=== PATIENT | female | born 1950 | race African-American/Black ===

== ENCOUNTER → 2022-10-25 12:45 | Outpatient (CLI) | payer MEDICARE, SELFPAY ==
--- NOTE | ~2022-10-25 | DEXA_ITS ---
Bone Density Report Name: BARBARA MATA Age: 72 Sex: Female Ethnicity: Black Date of : 1950 Indication: postmenopausal; screening for osteoporosis; height loss; hysterectomy; Referring Provider: Ragini Grossman Study: Bone densitometry was performed. Exam Date: October 25, 2022 Accession number: [id number] Bone Density: Region BMD T-score Z-score Classification AP Spine (L1-L4) 1.439 3.6 5.0 Normal Femoral Neck (Left) 0.749 -0.9 0.0 Normal Total Hip (Left) 0.989 0.4 0.9 Normal Femoral Neck (Right) 0.763 -0.8 0.1 Normal Total Hip (Right) 0.932 -0.1 0.5 Normal Total Hip Mean 0.961 0.2 0.7 Normal World Health Organization criteria for BMD impression classify patients as: Normal (T-score at or above -1.0), Osteopenia (T-score between -1.0 and -2.5), or Osteoporosis (T-score at or below -2.5). 10-year Fracture Risk: FRAX not reported because: All T-scores for Spine Total, Hip Total, Femoral Neck at or above -1.0 Clinical Information Provided by Patient: Has used the following medications: Vitamin D Has the following medical conditions: Hysterectomy Patient maximum height was 65 Menopause Age: 51 No regular weight bearing exercise Does not regularly consume dairy products Drinks caffeinated beverages Onset of menses at age 14 Number of children 3 Impression: The patient has normal bone mass. Discussion: BONE DENSITY IS ABOVE THE MINIMUM DESIRABLE LEVEL AT ALL SKELETAL SITES TESTED. This patient?s bone mineral density is above the minimum desirable level (T-score -1.0 or better) at all sites measured. The patient should follow a healthful lifestyle (good nutrition with adequate calcium and vitamin D, and appropriate weight-bearing exercise). Follow-Up: Consider repeating this study in 5 years or sooner if there is some new clinical indication. Reported by: CAMERON on 10/25/2022 1:14:00 PM. Reviewed, dictated and finalized at location AJackie OSWALD
== END ==
PROVIDERS: PCP Family Medicine; Visit Provider Family Medicine
DX: Z78.0 Asymptomatic menopausal state (principal)
CPT/HCPCS: 77080

== ENCOUNTER 2023-10-30 01:02 | Day surgery (SDC) | payer MEDICARE, SELFPAY ==
[2023-09-04 14:44] VITALS: BMI 46.7
--- NOTE | 2023-09-11 10:26 | PC.NURSE ---
Spoke with __patient__ regarding medication _Eliquis. Pt. verbalizes understanding that the last dose of _Eliquis_ is to be taken on 09/17/2023__ and the Endoscopist will instruct them when to restart after the procedure.
--- NOTE | 2023-09-18 11:41 | SUR.PREOP ---
Patient called regarding upcoming procedure. Reviewed preop instructions, appointment times, and procedure prep.
--- NOTE | 2023-09-18 11:45 | SUR.PREOP ---
Call pt as a reminder of her appointment. Pt stated she needed to reschedule. No reason given. Patient rescheduled to October 29 at 10am.
[2023-10-17 14:08] VITALS: BMI 46.7
--- NOTE | 2023-10-28 10:12 | SUR.PREOP ---
Patient called regarding upcoming procedure. Reviewed preop instructions, appointment times, procedure prep.
[2023-10-30 09:01] VITALS: BP 146/94; PULSE 85; RESP 18; TEMP 36.1; O2SAT 100
[2023-10-30] MEDS: LACTATED RINGERS 1,000 ML 150 ML IV CONT (09:14)
--- NOTE | 2023-10-30 09:58 | PM.HPGS ---
History of Present Illness History of Present Illness Consent: Risks, benefits, and alternatives have been discussed and questions answered. Patient agrees to proceed with procedure. Chief complaint: neoplasm screening Narrative: Rimma Mckeon is a 73 year old female here for screening colonoscopy, last one about 6 years ago Review of Systems Review of Systems: All systems reviewed & are unremarkable except as noted in HPI and below PMFSH Past Medical History Medical History Arthritis Atrial fibrillation Electrical isolation of left atrial appendage after cardiac ablation procedure for atrial fibrillation Heart disease HTN (hypertension) Surgical History Surgical History H/O left knee surgery History of partial hysterectomy History of right knee surgery Family History Family History Mother Diabetes mellitus Heart disease Cerebrovascular accident Sibling Hypertension Social History Social History Smoking status: Never smoker Alcohol intake: current Drinks per week: 5 Alcohol use details: daily/ vodka and cranberry juice Substance use: never Substance use type: does not use Lack of Transportation: No Lack of Food: Never True Current Housing: I Have Housing Concerned About Future Housing: No Difficulty Paying Gas/Electric Bills: No Difficulty Paying for Meds: No Currently Unemployed: No Education: Bachelor's Degree Difficulty w/ Childcare or Family Care: No Living arrangements: alone Occupation/Education: retired Gender identity (if verbalized by the patient): Female Spiritual care concerns: No Agree to blood products: Yes Meds Home Medications and Allergies Home Medications Medication Instructions Recorded Confirmed Type amiodarone 200 mg tablet 200 mg PO 2XW 06/08/22 10/17/23 History apixaban 5 mg tablet (Eliquis) 5 mg PO BID 06/08/22 10/30/23 History diltiazem HCl 240 mg capsule,24 240 mg PO DAILY 06/08/22 10/17/23 History hr,extended release furosemide 40 mg tablet 40 mg PO QAM 06/08/22 10/17/23 History tizanidine 4 mg capsule 4 mg PO BID PRN muscle spasticity 01/21/23 10/17/23 Rx #90 caps albuterol sulfate 90 mcg/actuation 2 inh inhalation Q4H PRN shortness 06/14/23 10/17/23 Rx aerosol inhaler of breath or wheezing #8.5 grams sacubitril 24 mg-valsartan 26 mg 1 tablet PO BID #180 tabs 07/22/23 10/17/23 Rx tablet (Entresto) tramadol 50 mg tablet 50 mg PO Q6H PRN pain #30 tabs 09/30/23 10/17/23 Rx potassium chloride 20 mEq See Rx Instructions .Route 10/17/23 10/17/23 Rx tablet,extended .COMPLEX #90 tabs release(part/cryst) (Klor-Con M) Allergies Allergy/AdvReac Type Severity Reaction Status Date / Time No Known Allergies Allergy Verified 10/30/23 09:00 Vital Signs Vital Signs - 24 hr 10/30/23 09:01 Temperature 97 F L Pulse Rate 85 Respiratory Rate 18 Blood Pressure 146/94 H Pulse Oximetry 100 Oxygen Delivery Room Air Exam Const: General: comfortable and no acute distress HENMT: Face/Nose/Sinus: Normal nares present Eyes: General: appearance normal, both eyes and all related structures Neck: Neck: no JVD Resp: Auscultation: clear to auscultation bilaterally Cardio: Rate: regular rate Rhythm: regular rhythm GI: Inspection: non-distended GI Palp: Yes Soft to palpation Skin: General skin exam: normal color Neuro: General: gait normal Speech: normal speech Extrem: General: normal to inspection Psych: Mental Status: mental status grossly normal Assessment and Plan Assessment and plan (1) Screening for colon cancer: Code(s): Z12.11 - Encounter for screening for malignant neoplasm of colon Status: Acute Assessment and Plan: colonoscopy
--- NOTE | 2023-10-30 10:06 | WPDANESEPPF ---
Anes - Initial Pre Proc Eval Procedure: Operation Date: 10/30/23 10:00 Proposed Procedures p Screening Colonoscopy - Flakito Lamas MD Date/Time: 10/30/23 10:06 Surgeon: Flakiot Lamas MD Pre Op Diagnosis: neoplasm screening Patient Data Age: 73 Gender: F Height: 1.65 m Weight: 133 kg Last Vital Signs Temp 97 F L 10/30/23 09:01 Pulse 85 10/30/23 09:01 Resp 18 10/30/23 09:01 BP 146/94 H 10/30/23 09:01 Pulse Ox 100 10/30/23 09:01 O2 Del Method Room Air 10/30/23 09:01 Allergies Allergy/AdvReac Type Severity Reaction Status Date / Time No Known Allergies Allergy Verified 10/30/23 09:00 Home Medications Medication Instructions Recorded Confirmed Type amiodarone 200 mg tablet 200 mg PO 2XW 06/08/22 10/17/23 History apixaban 5 mg tablet (Eliquis) 5 mg PO BID 06/08/22 10/30/23 History diltiazem HCl 240 mg capsule,24 240 mg PO DAILY 06/08/22 10/17/23 History hr,extended release furosemide 40 mg tablet 40 mg PO QAM 06/08/22 10/17/23 History tizanidine 4 mg capsule 4 mg PO BID PRN muscle spasticity 01/21/23 10/17/23 Rx #90 caps albuterol sulfate 90 mcg/actuation 2 inh inhalation Q4H PRN shortness 06/14/23 10/17/23 Rx aerosol inhaler of breath or wheezing #8.5 grams sacubitril 24 mg-valsartan 26 mg 1 tablet PO BID #180 tabs 07/22/23 10/17/23 Rx tablet (Entresto) tramadol 50 mg tablet 50 mg PO Q6H PRN pain #30 tabs 09/30/23 10/17/23 Rx potassium chloride 20 mEq See Rx Instructions .Route 10/17/23 10/17/23 Rx tablet,extended .COMPLEX #90 tabs release(part/cryst) (Klor-Con M) Patient hx anesthesia problems: none Family hx anesthesia problems: none Results Review: All pre-operative results and documents have been reviewed as part of the pre-operative evaluation. [facility] Past Medical History Medical History Arthritis Atrial fibrillation Electrical isolation of left atrial appendage after cardiac ablation procedure for atrial fibrillation Heart disease HTN (hypertension) Surgical History Surgical History H/O left knee surgery History of partial hysterectomy History of right knee surgery Family History Family History Mother Diabetes mellitus Heart disease Cerebrovascular accident Sibling Hypertension Social History Social History Smoking status: Never smoker Alcohol intake: current Drinks per week: 5 Alcohol use details: daily/ vodka and cranberry juice Substance use: never Substance use type: does not use Lack of Transportation: No Lack of Food: Never True Current Housing: I Have Housing Concerned About Future Housing: No Difficulty Paying Gas/Electric Bills: No Difficulty Paying for Meds: No Currently Unemployed: No Education: Bachelor's Degree Difficulty w/ Childcare or Family Care: No Living arrangements: alone Occupation/Education: retired Gender identity (if verbalized by the patient): Female Spiritual care concerns: No Agree to blood products: Yes Anes - Eval Final PreProcedure Day of Procedure 10/30/23 10:06 Patient weight: morbidly obese Heart: regular rate and rhythm Lungs: clear to auscultation Airway: Mallampati scale class III Neurological: alert and oriented Last oral intake: >/= 8 hours ASA classification: III Emergent: no Anesthetic plan: proceed Anesthesia type and monitoring: general GIVS and standard monitoring Results Review: All pre-operative results and documents have been reviewed as part of the pre-operative evaluation. Informed Consent: The patient's anesthetic plan and its attendant risks and benefits were discussed with the patient/family/POA. Questions were solicited and answers provided to the satisfaction of the patient/family
[2023-10-30 10:27] VITALS: BP 93/56; PULSE 83; RESP 17; O2SAT 99
[2023-10-30 10:37] VITALS: BP 110/72; PULSE 80; RESP 20; O2SAT 98
[2023-10-30 10:47] VITALS: BP 117/63; PULSE 74; RESP 20; O2SAT 97
== END 2023-10-30 10:58 | disposition home or self-care (01) ==
PROVIDERS: PCP Family Medicine; Visit Provider Internal Medicine Gastroenterology
PROC: 0DJD8ZZ Inspection of Lower Intestinal Tract, Via Natural or Artificial Opening Endoscopic (ICD-10-PCS; CPT 45378; principal; 2023-10-30 10:00)
DX: Z12.11 Encounter for screening for malignant neoplasm of colon (principal); D12.4 Benign neoplasm of descending colon; K63.5 Polyp of colon; K57.30 Diverticulosis of large intestine without perforation or abscess without bleeding; K64.8 Other hemorrhoids; I48.91 Unspecified atrial fibrillation; I11.9 Hypertensive heart disease without heart failure; E66.01 Morbid (severe) obesity due to excess calories; Z68.42 Body mass index [BMI] 45.0-49.9, adult; Z79.01 Long term (current) use of anticoagulants; Z79.51 Long term (current) use of inhaled steroids
CPT/HCPCS: 45385; 88305; J2371; J2704; J7120

== ENCOUNTER 2023-11-05 14:59 | Outpatient (CLI) | payer MEDICARE, SELFPAY ==
--- NOTE | ~2023-11-05 | XR_ITS ---
XR knee LT 3V 11/05/2023 15:11 Indication: Left knee replacement. Knee pain. Procedure: 3 views left knee Comparison: No prior studies for comparison. Findings: There is widening of the cement bone M interface anteriorly at the tibial aspect of the pro sthesis. There is also lucency surrounding the post of the tibial aspect of the prosthesis posteriorl y. There is dorsal tilt of the prosthesis. Femoral component appears to be intact. Small joint effusi on. Impression: 1: Abnormal lucency surrounding the tibial aspect of the left knee prosthesis anteriorly and posterio rly, consistent with loosening. Recommend orthopedic referral. Reviewed, dictated and finalized at location B. Impression: 1: Abnormal lucency surrounding the tibial aspect of the left knee prosthesis a nteriorly and posteriorly, consistent with loosening. Recommend orthopedic refe rral.
== END 2023-11-05 15:00 ==
PROVIDERS: PCP Family Medicine; Visit Provider Nurse Practitioner
DX: Z96.652 Presence of left artificial knee joint (principal)
CPT/HCPCS: 73562

== ENCOUNTER 2024-08-10 07:54 | Outpatient (CLI) | payer MEDICARE, SELFPAY ==
--- OUTSIDE RECORDS SUMMARY | 2024-08-17 11:19 | XMS_ITS | Encounter Summary ---
Author Organization [facility] Address [address] [place] [address] Care Team Providers Care Er Tech Name Role Phone Unavailable Primary Care Provider Unavailabl e Encounter Details Date Type Department Care Team (Late st Contact Info) Description 06/27/2018 Orders Only [facility] - Orthopedics [address] [place] [address] Cyndy Shaver PA-C [address] [place] [address] Pain in both knees, unspecified chronicity Social History Tobacco Use Types Packs/Day Years Used Date Smoking Tobacco: Never Assessed Sex and Gender Information Value Date Recorded Sex Assigned at Not on file Gender Identity Not on file Sexual Orientation Not on file documented as of this encounter Plan of Treatment Not on file documented as of this encounter Results * XR KNEE LEFT 4VW OR MORE (06/30/2018 9:18 AM SEO ASSOCIATE) Anatomical Region Laterality Modality Lower Extremity Radiographic Richelle ging 06/30/2018 10:2 2 AM SEO ASSOCIATE Impressions 06/30/2018 10:23 AM SEO ASSOCIATE IMPRESSION: Severe osteoarthritis with genu varum. This report was electronically signed by BRUCE BLANCO MD ??on 06/30/2018 10:23 AM . Narrative 06/30/2018 10:23 AM SEO ASSOCIATE Exam: ??XR KNEE LEFT 4VW OR MORE History: ??knee pain Comparison: None. Findings: No acute fracture or dislocation is present. Severe osteoarthritis is demonstrated, greatest in the medial compartment where there is [id number] contact and flattening of the medial femoral condyle contour, subchondral cysts, sclerosis, large osteophytes. There is genu varum and lateral tibial subluxation. No effusion is noted. Procedure Note Bruce Blanco MD - 06/30/2018 Exam: XR KNEE LEFT 4VW OR MORE History: knee pain Comparison: None. Findings: No acute fracture or dislocation is present. Severe osteoarthritis is demonstrated, greatest in the medial compartment where there is [id number] contact and flattening of the medial femoral condylecontour, subchondral cysts, sclerosis, large osteophytes. There is genu varum and lateral tibial subluxation. No effusion is noted. IMPRESSION: Severe osteoarthritis with genu varum. This report was electronically signed by BRUCE BLANCO MD on 06/30/2018 10:23 AM . Cyndy Shaver PA-C DIAGNOSTIC IMAG ING ORDERABLES * XR KNEE RIGHT 4VW OR MORE (06/30/2018 9:18 AM SEO ASSOCIATE) Anatomical Region Laterality Modality Lower Extremity Radiographic Richelle ging 06/30/2018 10:2 1 AM SEO ASSOCIATE Impressions 06/30/2018 10:22 AM SEO ASSOCIATE IMPRESSION: Severe osteoarthritis and genu varum. This report was electronically signed by BRUCE BLANCO MD ??on 06/30/2018 10:22 AM . Narrative 06/30/2018 10:22 AM SEO ASSOCIATE Exam: ??XR KNEE RIGHT 4VW OR MORE History: ??knee pain Comparison: None. Findings: No fracture or dislocation is present. There is osteoarthritis, severe in the medial compartment with [id number] contact. Large osteophytes are noted. There is genu varum and lateral tibial subluxation. No effusion is seen. Procedure Note Bruce Blanco MD - 06/30/2018 Exam: XR KNEE RIGHT 4VW OR MORE History: knee pain Comparison: None. Findings: No fracture or dislocation is present. There is osteoarthritis, severein the medial compartment with [id number] contact. Large osteophytes are noted. There is genu varum and lateral tibial subluxation. No effusionis seen. IMPRESSION: Severe osteoarthritis and genu varum. This report was electronically signed by BRUCE BLANCO MD on 06/30/2018 10:22 AM . Cyndy Shaver PA-C DIAGNOSTIC IMAG ING ORDERABLES documented in this encounter Visit Diagnoses Diagnosis Pain in both knees, unspecified chronicity- Primary documented in this encounter
--- OUTSIDE RECORDS SUMMARY | 2024-08-17 11:19 | XMS_ITS | Encounter Summary ---
Author Organization [facility] Address [address] [place] [address] Care Team Providers Care Pharmacy Scheduler Name Role Phone Unavailable Primary Care Provider Unavailabl e Reason for Visit * Reason Comments Pain Knee Bilateral knee injec tions Encounter Details Date Type Department Care Team (Latest Contact Info) Description 11/20/2018 8:30 AM CDT Office Visit [facility] - Orthopedics [address], [facility] [place] [id number] Cyndy Shaver PA-C [address] [place] [address] Bilateral primary osteoarthritis of knee (Primary Dx) Social History Tobacco Use Types Packs/Day Years Used Date Smoking Tobacco: Never Smokeless Tobacco: Never Sex and Gender Information Value Date Recorded Sex Assigned at Not on file Gender Identity Not on file Sexual Orientation Not on file documented as of this encounter Last Filed Vital Signs Vital Sign Reading Time Taken Comments Blood Pressure - - Pulse - - Temperature - - Respiratory Rate - - Oxygen Saturation - - Inhaled Oxygen Concentration - - Weight 165.6 kg (365 lb) 11/20/2018 8:46 AM CDT Height 165.1 cm (5' 5 ) 11/20/2018 8:46 AM CDT Body Mass Index 60.74 11/20/2018 8:46 AM CDT documented in this encounter Patient Instructions * Patient Instructions* Cyndy Shaver PA-C - 11/20/2018 8:55 AM CDT [facility] Department of Orthopaedic Surgery Orthopaedic Clinic Discharge Form Rimma Mckeon 11/20/2018 Thank you for coming in to see us today for your diagnosis of: Bilateral primary osteoarthritis of knee - Plan: PROCDOC LARGE JOINT INJECTION, PROCDOC LARGE JOINTINJECTION Activity Restrictions: as tolerated Medications Prescribed: none Special Studies/Labs to be completed: none We recommend that you try the following for your injury: physical therapy exercises, anti-inflammatory medications, corticosteroid injection given in clinictoday, tylenol, activity modification, weight loss and icing 20 minutes at a time 3 to 5 times daily Recommend 2000 units Vitamin D daily for bone health May try 1500 to 2000 mg Glucosamine/chondriotin/MSM daily for joint pain Medications over the counter: - Acetaminophen (Tylenol) 500mg 1-2 tablets every 6 hours as needed for pain, not exceeding daily total of 3000mg. Please note that narcotic medications can consist of same ingredient. - Ibuprofen (Advil) 200mg 1-3 tablets every 8 hours as needed for pain, not exceeding daily total of 2400mg OR Naproxen (Aleve) 220mg 1-2 tablets every 12 hours as needed for pain. Take with food or milk to prevent stomach upset. Do not take any other NSAIDs while taking this medication. Follow up: as needed. Injections may be repeated in 3 months Rimma Mckeon had a clinic appointment on 11/20/2018. Please contact our office to make an appointment if your symptoms are not improving, or if something about your condition significantly changes. [facility]opa[facility] office contact information: Critical access hospital ; select option 1 to make, change or cancel an appointment OR leave voicemail with Jessica Crum RN at with any questions/concerns. [address] [place] [address] [facility] [address] [place] [address], [address] [address] Contact [facility] to explore weight loss options. Website: [email or web address] offers both surgical and non-surgical weight-loss options to treat obesity. Whether you need to make long-term lifestyle changes or small habit adjustments, our team of specially- trainedphysicians and clinicians will support you on your journey to wellness. OR Contact [facility] Website: [email or web address] documented in this encounter Progress Notes * Cyndy Shaver PA-C - 11/20/2018 8:53 AM CDT [facility] [address] [facility] [address] Dept: [phone] Dept Today we had the pleasure of seeing Rimma Mckeon in our [facility]opa[facility] Surgery Clinic for Chief Complaint Patient presents with ??? Pain Knee Bilateral knee injections Rimma Mckeon is a 68 year old female who has bilateral knee pain due to OA. She was last seen 5months ago and underwent bilateral knee injections. She presents today for repeat injections. Pain is located to the right worse than left medial knee. The patient first noted symptoms 10 years ago. It was related to NKI. Associated with pain are symptoms of swelling and instability. Symptoms are exacerbated by weight bearing activity. Factors which relieve the pain include rest. she is taking meloxicam for pain. she ambulates with cane. she has not done physical therapy. she denies changes in health since last appt No past medical history on file. No past surgical history on file. No family history on file. History Smoking Status ??? Never Smoker Smokeless Tobacco ??? Never Used Focused ROS includes: Enodcrine Diabetes Mellitus: Not Applicable Thyroid disorders: no Pulmonary COPD: no Asthma: no Other: negative Cardiac History of CHF: no History of IN: no Previous PCI / PTCA: no Previous Cardiac Surgery: no Hypertension requires meds: yes Vascular Known peripheral vascular disease: no Central Nervous System History of TIA's: no CVA: No History of Cancer of any kind: no Bleeding disorders: no Other significant health issues are: negative Physical Examination Vitals: 11/20/18 0846 Weight: (!) 165.6 kg (365 lb) Height: 1.651 m (5' 5 ) Estimated body mass index is 60.74 kg/(m^2) as calculated from the following: Height as of this encounter: 1.651 m (5' 5 ). Weight as of this encounter: 165.6 kg (365 lb). she is awake, alert, oriented and they are pleasant to speak with. There is no pain with rotation of the right or left hip. There is a negative straight leg raise bilaterally. Gait is limping. Bilateral lower extremity: There is not an effusion. Varus knees. There is tenderness of the medialjoint line. Addy is negative. There is grade 1 varus laxity . Thereis grade 1 valgus laxity. There is grade 1 posterior sag. McMurrays test is n/a. ROM is from 0 degrees of extension to 100 degreesof flexion. The patient does have significant pain with these ranges of motion. The extensor mechanism is intact. There is not a palpable gap in the patellar and quadriceps tendons. The patellar tracks well. Patellar apprehension test is negative. Quadriceps strength is 5/5. There is not quadricepsatrophy present. intactEHL/FHL/GS/AT, Sensation: intact to light touch distally in L4, L5, S1 distributions, Brisk capillary refill (<2 sec). Erythema: none. Warmth: none. Crepitus: none. Radiographs were reviewed by me in office: plain films bilateral knee (06/29): tricompartmental degenerative changes, severe medially. Impression: Bilateral knee OA Plan: The patient was counseled as to her diagnosis and demonstrated understanding. 1. Restrictions: none 2. Bilateral knee corticosteroid injection was given in office. Recommend icing for 20 minutes 3-5 times a day for the first 48 hours and then as needed for pain. 3. discussed physical therapy, she declines. Discussed importance of developing a home exercise program 4. Medication prescribed: none. Continue meloxicam prn pain 5. Patient was counseled as to the following conservative interventions: - Recommend 2000 units Vitamin D daily for bone health - May try 1500 to 2000 mg Glucosamine/chondriotin/MSM daily for joint pain. - The patient was counseled as to the benefits of weight loss. Information provided for [facility] Weight Loss Management services - she was informed about the use of ambulatory assistive devices. 6. F/U as needed. Injections may be repeated in 3 months. Prior to joint replacement surgery, patient understands BMI must be below 40.0 Cyndy Shaver PA-C documented in this encounter Procedure Notes * Cyndy Shaver PA-C - 11/20/2018 4:34 PM CDTAssociated Order(s): PROCDOC LARGE JOINT INJECTION Procedure(s): VT DRAIN/INJECT LARGE JOINT/BURSA Pre-Procedure Diagnose(s): Bilateral primary osteoarthritis of knee Orthopaedic Surgery Procedure Note Diagnosis: Left knee pain Procedure: Injection of Corticosteroid into the Left knee. Indications: Rimma Mckeon is a 68 year old female who has Left knee pain and arthritis. Procedure Details: Ms. Mckeon was informed of her condition, and the potential benefits of injection of steroid. The patient was counseled as to the risks of the procedure. She was understanding and agreeable. The patient was placed into the supine position. The area was prepped with beta-dine. Utilizing the supralateral patellar portal, the skin, subcutaneous, and pericapsular tissues were injected with 3 cc 1% lidocaine without epinephrine using a 21 Ga needle. The patient's Left knee was then entered. Confirmation of location inside the joint was evidenced by aspiration of straw colored synovial fluid. 2 cc of Kenalog and 3 cc 1% lidocaine without epinephrine was injected into the joint. The needle was removed and the needle site dressed with a semi-sterile bandage. The patient tolerated the procedure well. Remainder of plan per note. Cyndy Shaver PA-C 11/20/2018 4:34 PM * Cyndy Shaver PA-C - 11/20/2018 4:34 PM CDTAssociated Order(s): PROCDOC LARGE JOINT INJECTION Procedure(s): VT DRAIN/INJECT LARGE JOINT/BURSA Pre-Procedure Diagnose(s): Bilateral primary osteoarthritis of knee Orthopaedic Surgery Procedure Note Diagnosis: Right knee pain Procedure: Injection of Corticosteroid into the Right knee. Indications: Rimma Mckeon is a 68 year old female who has Right knee pain and arthritis. Procedure Details: Ms. Mckeon was informed of her condition, and the potential benefits of injection of steroid. The patient was counseled as to the risks of the procedure. She was understanding and agreeable. The patient was placed into the supine position. The area was prepped with beta-dine. Utilizing the supralateral patellar portal, the skin, subcutaneous, and pericapsular tissues were injected with 3 cc 1% lidocaine without epinephrine using a 21 Ga needle. The patient's Right knee was then entered. Confirmation of location inside the joint was evidenced by aspiration of straw colored synovial fluid. 2 cc of Kenalog and 3 cc 1% lidocaine without epinephrine was injected into the joint. The needle was removed and the needle site dressed with a semi-sterile bandage. The patient tolerated the procedure well. Remainder of plan per note. Cyndy Shaver PA-C 11/20/2018 4:34 PM documented in this encounter Plan of Treatment Not on file documented as of this encounter Procedures Procedure Name Priority Date/Time Associated Diagnosis Comments VT DRAIN/INJECT LARGE JOINT/BURSA Routine 11/20/2018 4:35 PM CDT Bilateral primary osteoarthritis of knee VT DRAIN/INJECT LARGE JOINT/BURSA Routine 11/20/2018 4:35 PM CDT Bilateral primary osteoarthritis of knee documented in this encounter Results * VT DRAIN/INJECT LARGE JOINT/BURSA (11/20/2018 4:35 PM CDT) Narrative Cyndy Shaver PA-C - 11/20/2018 4:35 PM CDT Cyndy Shaver PA-C ? 11/20/2018 ??4:35 PM Orthopaedic Surgery Procedure Note Diagnosis: Left knee pain Procedure: Injection of Corticosteroid into the Left knee. Indications: Rimma Mckeon is a 68 year old female who has Left knee pain and arthritis. Procedure Details: Ms. Mckeon was informed of her condition, and the potential benefits of injection of steroid. The patient was counseled as to the risks of the procedure. She was understanding and agreeable. The patient was placed into the supine position. The area was prepped with beta-dine. Utilizing the supralateral patellar portal, the skin, subcutaneous, and pericapsular tissues were injected with 3 cc 1% lidocaine without epinephrine using a 21 Ga needle. The patient's Left knee was then entered. Confirmation of location inside the joint was evidenced by aspiration of straw colored synovial fluid. 2 cc of Kenalog and 3 cc 1% lidocaine without epinephrine was injected into the joint. The needle was removed and the needle site dressed with a semi-sterile bandage. The patient tolerated the procedure well. Remainder of plan per note. Cyndy Shaver PA-C 11/20/2018 4:34 PM Cyndy Shaver PA-C PROCEDURE/MINOR SURGICAL ORDERABLES * VT DRAIN/INJECT LARGE JOINT/BURSA (11/20/2018 4:35 PM CDT) Narrative Cyndy Shaver PA-C - 11/20/2018 4:35 PM CDT Cyndy Shaver PA-C ? 11/20/2018 ??4:35 PM Orthopaedic Surgery Procedure Note Diagnosis: Right knee pain Procedure: Injection of Corticosteroid into the Right knee. Indications: Rimma Mckeon is a 68 year old female who has Right knee pain and arthritis. Procedure Details: Ms. Mckeon was informed of her condition, and the potential benefits of injection of steroid. The patient was counseled as to the risks of the procedure. She was understanding and agreeable. The patient was placed into the supine position. The area was prepped with beta-dine. Utilizing the supralateral patellar portal, the skin, subcutaneous, and pericapsular tissues were injected with 3 cc 1% lidocaine without epinephrine using a 21 Ga needle. The patient's Right knee was then entered. Confirmation of location inside the joint was evidenced by aspiration of straw colored synovial fluid. 2 cc of Kenalog and 3 cc 1% lidocaine without epinephrine was injected into the joint. The needle was removed and the needle site dressed with a semi-sterile bandage. The patient tolerated the procedure well. Remainder of plan per note. Cyndy Shaver PA-C 11/20/2018 4:34 PM Cyndy Shaver PA-C PROCEDURE/MINOR SURGICAL ORDERABLES documented in this encounter Visit Diagnoses Diagnosis Bilateral primary osteoarthritis of knee- Primary documented in this encounter Administered Medications Inactive Administered Medications - up to 3 most recent administrations Medication Order MAR Action Action Date Dose Rate Site lidocaine (XYLOCAINE MPF) 1 % injection 6 mL 6 mL, Intra-articular, ONCE, 1 dose, On Radha 11/20/18 at 0915 $ Given 11/20/2018 10:26 AM CDT 6 mL Righ t Knee lidocaine (XYLOCAINE MPF) 1 % injection 6 mL 6 mL, Intra-articular, ONCE, 1 dose, On Radha 11/20/18 at 0915 $ Given 11/20/2018 10:25 AM CDT 6 mL Left Knee triamcinolone acetonide (KENALOG-40) injection 80 mg 80 mg, Intra-articular, ONCE, 1 dose, On Radha 11/20/18 at 0915, Shake well before using. $ Given 11/20/2018 10:26 AM CDT 80 mg Righ t Knee triamcinolone acetonide (KENALOG-40) injection 80 mg 80 mg, Intra-articular, ONCE, 1 dose, On Radha 11/20/18 at 0915, Shake well before using. $ Given 11/20/2018 10:26 AM CDT 80 mg Left Knee documented in this encounter
--- OUTSIDE RECORDS SUMMARY | 2024-08-17 11:19 | XMS_ITS | Referral Summary ---
Author Organization [facility] Address [address] [place] [address] Care Team Providers Care Yarn Spinner Name Role Phone Unavailable Primary Care Provider Unavailabl e Source Comments [facility],non-owned Affiliates and Associated Physician Practices is amultiple site organization consisting of ambulatory clinics and hospital sitesin [place], [place], [place] and [place]. This disclosure is being madepursuant to the Care Everywhere program and may not contain all information available regarding this patient. Last updated 18.[facility] Allergies No known active allergies Medications * Be aware that medications may not be up to date on this document. Alwaysverify current medications with the patient. Medication Sig Dispensed Refills Start Date End Date Status furosemide (LASIX) 40 MG tablet Take 40 mg by mouth once daily Active amLODIPine (NORVASC) 10 MG tablet Take 10 mg by mouth once daily Active meloxicam (MOBIC) 15 MG tabletIndications:Bila teral primary osteoarthritis of knee Take 1 tablet by mouth once daily 30 tablet 2 06/30/2018 Active amiodarone (CORDARONE) 200 MG tablet 06/15/2019 Active ELIQUIS 5 MG tablet 06/30/2019 Activ e diclofenac sodium (VOLTAREN) 1 % gel Voltaren 1 % topical gel APPLY 2 GRAMS TO THE AFFECTED AREA(S) BY TOPICAL ROUTE 3 times daily Active dilTIAZem coated beads 24hr (CARDIZEM CD) 180 MG capsule 06/15/2019 Active Active Problems No known active problems Social History Tobacco Use Types Packs/Day Years Used Date Smoking Tobacco: Never Smokeless Tobacco: Never Alcohol Use Standard Drinks/Week Comments Yes 0 (1 standard drink = 0.6 oz pur e alcohol) AUDIT-C Answer Date Recorded Frequency of Alcohol Consumption 4 or more times a week 07/07/2019 Average Number of Drinks Not on file 019 Frequency of Binge Drinking Not on file 06/13 Sex and Gender Information Value Date Recorded Sex Assigned at Not on file Gender Identity Not on file Sexual Orientation Not on file Last Filed Vital Signs Vital Sign Reading Time Taken Comments Blood Pressure - - Pulse - - Temperature - - Respiratory Rate - - Oxygen Saturation - - Inhaled Oxygen Concentration - - Weight 158.8 kg (350 lb) 07/07/2019 10:59 AM 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 Author Mobility General No Jessica Crum RN Note: Expected end date: 08/12/2019 The goal is to maintain or improve your mobility at the optimum level for you. Interventions:
--- OUTSIDE RECORDS SUMMARY | 2024-08-17 11:19 | XMS_ITS | Continuity of Care Document ---
Author Organization [facility] Address [address] [place] [address] [address] [place] [address] Phone Care Team Providers Care Drafter Name Role Phone Aníbal Tristan Unavailable Unavailable Procedures Procedure Date Office/outpatient Visit, [facility] Advance Directives Directive Yes / No Effective Date File Name No Information Encounters Encounter Description Practice Location Reason(s) For Visit Diagnoses Date Provider Providers Copied on Encounter Office/outpat ient Visit, [facility], [address], [place], [place], [id number], [place] tel:[phone] [facility] No Information Oct-0 3-200 9 Maldonadotamyannita Aníbal. [address], [place], [address], [place]. tel:[phone] Family History Family Member Type Diagnosis Age At Onset No Information Payers Payer name Insurance type Covered republican ID Danny vazquez(s) [facility] CI [id number] Social History Type Description Quantity Date Captured Comments Sex Female Smoking Status No Information Chief Complaint And Reason For Visit No Information Reason For Referral Reason For Referral No Information History Of Present Illness Encounter Date Complaint History Of Prese nt Illness No Information Functional Status Date Functional Assessmen t No Information Instructions Date Instruction Additional Infor mation No Information Assessments Type Assessment Date No Information Patient Care Teams Name Effective Dates (start - stop) Status Members No Information
--- OUTSIDE RECORDS SUMMARY | 2024-08-17 11:19 | XMS_ITS | Clinical Summary ---
Author Organization [facility] Address [address] [place] [address] Care Team Providers Care Furniture Sander Name Role Phone Unavailable Primary Care Provider Unavailabl e Source Comments [facility],non-owned Affiliates and Associated Physician Practices is amultiple site organization consisting of ambulatory clinics and hospital sitesin [place], [place], [place] and [place]. This disclosure is being madepursuant to the Care Everywhere program and may not contain all information available regarding this patient. Last updated 18.[facility] [employer] Allergies No known active allergies Medications * [...] 158.8 kg (350 lb) 07/07/2019 10:59 AM DESIGN ENG Height 165.1 cm (5' 5 ) 07/07/2019 10:59 AM DESIGN ENG Body Mass Index 58.24 07/07/2019 10:59 AM DESIGN ENG Plan of Treatment Health Maintenance Due Date Last Done Comments BONE DENSITY TESTING 1950 COLOGUARD (AGES 45-75) - COL ON CA SCREENING 1950 COLON MONITORING 1951 COLONOSCOPY - COLON CA SCREENING 1951 CT COLONOGRAPHY - COLON CA SCREENING 1950 Colorectal Cancer Screening 1950 FIT - COLON CA SCREENING 1950 FLEX SIG - COLON CA SCREENING 1950 LIPID TESTING 1950 MAMMOGRAM 1950 HEPATITIS C SCREENING 06/11/1969 DTAP/TDAP/TD VACCINES (1 - Tdap) 1970 ZOSTER VACCINE (1 of 2) 2001 Respiratory Syncytial Virus (RSV) Vaccine Pt: or over 60 yrs (1 - Risk 60-74 years 1-dose series) 2011 PNEUMOCOCCAL VACCINE 65+ (1 of 1 - PCV) 2016 SCREENING FOR DIABETES 06/30/2018 DEPRESSION SCREENING 08/12/2023 MEDICARE AWV ? CALENDAR YEAR 2023 COVID-19 VACCINE (1 - 2023-2 5 season) 2024 INFLUENZA VACCINE (#1) 2024 HEPATITIS B VACCINE Aged Out No longe r eligible based on patient's age to complete this topic HIB VACCINE Aged Out No longer eligi ble based on patient's age to complete this topic HPV VACCINE Aged Out No longer eligi ble based on patient's age to complete this topic MENINGOCOCCAL VACCINE Aged Out No lilly kevon eligible based on patient's age to complete this topic Goals Goal Patient Goal Type Associated Problems Recent Progress Patient-Stated? Author Mobility General No Jessica Crum RN Note: Expected end date: 08/12/2019 The goal is to maintain or improve your mobility at the optimum level for you. Interventions:
--- OUTSIDE RECORDS SUMMARY | 2024-08-17 11:19 | XMS_ITS | Encounter Summary ---
Author Organization [facility] Address [address] [place] [address] Care Team Providers Care Milled Rubber Tender Name Role Phone Unavailable Primary Care Provider Unavailabl e Encounter Details Date Type Department Care Team (Late st Contact Info) Description 11/07/2020 Orders Only [facility] - COVID Vax [address] [place] [address] Richmond Cano MD [address] [facility] [address] [place] [address] Need for vaccination Social History Tobacco Use Types Packs/Day Years [...] on file documented as of this encounter Goals Goal Patient Goal Type Associated Problems Recent Progress Patient-Stated? Author Mobility General No Jessica Crum, RN Note: Expected end date: 08/12/2019 The goal is to maintain or improve your mobility at the optimum level for you. Interventions: documented as of this encounter Visit Diagnoses Diagnosis Need for vaccination Need for prophylactic vaccination and inoculation against unspecified single disease documented in this encounter
--- OUTSIDE RECORDS SUMMARY | 2024-08-17 11:19 | XMS_ITS | Patient Health Summary ---
Author Organization [facility] Address [address] [place] [address] Care Team Providers Care Hearing Aid Consultant Name Role Phone Unavailable Primary Care Provider Unavailabl e Note from [facility],non-owned Affiliates and Associated Physician Practices is amultiple site organization consisting of ambulatory clinics and hospital sitesin [place], [place], [place] and [place]. This disclosure is being madepursuant to the Care Everywhere program and may not contain all information available regarding this patient. Last updated 18.[facility] Allergies No known active allergies Medications * Be aware that medications may not be up to date on this document. Alwaysverify current medications with the patient. * furosemide (LASIX) 40 MG tablet Take 40 mg by mouth once daily * amLODIPine (NORVASC) 10 MG tablet Take 10 mg by mouth once daily * meloxicam (MOBIC) 15 MG tablet(Started 06/30/2018) Take 1 tablet by mouth once daily 2 refills remaining * amiodarone (CORDARONE) 200 MG tablet(Started 06/15/2019) * ELIQUIS 5 MG tablet(Started 06/30/2019) * diclofenac sodium (VOLTAREN) 1 % gel Voltaren 1 % topical gel APPLY 2 GRAMS TO THE AFFECTED AREA(S) BY TOPICAL ROUTE 3 times daily * dilTIAZem coated beads 24hr (CARDIZEM CD) 180 MG capsule(Started 06/15/2019) Active Problems No known active problems Social [...] 158.8 kg (350 lb) 07/07/2019 10:59 AM STATOR CONNECTOR Height 165.1 cm (5' 5 ) 07/07/2019 10:59 AM STATOR CONNECTOR Body Mass Index 58.24 07/07/2019 10:59 AM STATOR CONNECTOR Procedures * DE DRAIN/INJECT LARGE JOINT/BURSA(Performed 07/07/2019) Performed for Bilateral primary osteoarthritis of knee * DE DRAIN/INJECT LARGE JOINT/BURSA(Performed 07/07/2019) Performed for Bilateral primary osteoarthritis of knee * DE DRAIN/INJECT LARGE JOINT/BURSA(Performed 11/20/2018) Performed for Bilateral primary osteoarthritis of knee * DE DRAIN/INJECT LARGE JOINT/BURSA(Performed 11/20/2018) Performed for Bilateral primary osteoarthritis of knee * DE DRAIN/INJECT LARGE JOINT/BURSA(Performed 06/30/2018) Performed for Bilateral primary osteoarthritis of knee * DE DRAIN/INJECT LARGE JOINT/BURSA(Performed 06/30/2018) Performed for Bilateral primary osteoarthritis of knee * XR KNEE LEFT 4VW OR MORE(Performed 06/30/2018) Performed for Pain in both knees, unspecified chronicity * XR KNEE RIGHT 4VW OR MORE(Performed 06/30/2018) Performed for Pain in both knees, unspecified chronicity Results * DE DRAIN/INJECT LARGE JOINT/BURSA (07/07/2019 11:19 AM STATOR CONNECTOR) Narrative Nii Latif MD - 07/07/2019 11:19 AM STATOR CONNECTOR Nii Latif MD ? 07/07/2019 11:19 AM Orthopaedic Surgery Procedure Note Diagnosis: Left knee pain Procedure: Injection of corticosteroid into the left knee Indications: Rimma Mckeon is a 69 year old female who has left knee pain and arthritis. Procedure Details: The patient was informed of her condition, and the potential benefits of injection of steroid. The patient was counseled as to the risks of the procedure and allergies were reviewed. The patient was understanding and agreeable. ?? The patient was placed into the appropriate position. The area was prepped with betadine and alcohol. Utilizing the peripatellar portal, the skin, subcutaneous, and pericapsular tissues were injectedwith 3 cc 1% lidocaine without epinephrine using a 21 Ga needle. The patient's left knee joint was then entered. Confirmation of location inside the joint was evidenced by aspiration of straw colored synovial fluid. 2 cc of Kenalog/3cc lidocaine was injected into the joint. The needle was removed and the needle site cleaned with alcohol and dressed with a sterile bandage. The procedure was performed under sterile conditions. ?? The patient tolerated the procedure well. Remainder of plan per note. Nii Latif MD 07/07/2019 11:19 AM Nii Latif MD PROCEDURE/MINOR WILLIAM GICAL ORDERABLES * DE DRAIN/INJECT LARGE JOINT/BURSA (07/07/2019 11:19 AM STATOR CONNECTOR) Narrative Nii Latif MD - 07/07/2019 11:19 AM STATOR CONNECTOR Nii Latif MD ? 07/07/2019 11:19 AM Orthopaedic Surgery Procedure Note Diagnosis: Right knee pain Procedure: Injection of corticosteroid into the right knee Indications: Rimma Mckeon is a 69 year old female who has right knee pain and arthritis. Procedure Details: The patient was informed of her condition, and the potential benefits of injection of steroid. The patient was counseled as to the risks of the procedure and allergies were reviewed. The patient was understanding and agreeable. ?? The patient was placed into the appropriate position. The area was prepped with betadine and alcohol. Utilizing the peripatellar portal, the skin, subcutaneous, and pericapsular tissues were injected with 3 cc 1% lidocaine without epinephrine using a 21 Ga needle. The patient's right knee was then entered. Confirmation of location inside the joint was evidenced by aspiration of straw colored synovial fluid. 2 cc of Kenalog/3cc lidocaine was injected into the joint. The needle was removed and the needle site cleaned with alcohol and dressed with a sterile bandage. The procedure was performed under sterile conditions. ??The patient tolerated the procedure well. Remainder of plan per note. Nii Latif MD 07/07/2019 11:19 AM Nii Latif MD PROCEDURE/MINOR WILLIAM GICAL ORDERABLES * DE DRAIN/INJECT LARGE JOINT/BURSA (11/20/2018 4:35 PM CDT) [...] Cyndy Shaver PA-C PROCEDURE/MINOR SURGICAL ORDERABLES * DE DRAIN/INJECT LARGE JOINT/BURSA (11/20/2018 4:35 PM CDT) [...] Cyndy Shaver PA-C PROCEDURE/MINOR SURGICAL ORDERABLES * DE DRAIN/INJECT LARGE JOINT/BURSA (06/30/2018 11:28 AM STATOR CONNECTOR) Narrative Cyndy Shaver PA-C - 06/30/2018 11:28 AM STATOR CONNECTOR Cyndy Shaver PA-C ? 06/30/2018 11:28 AM Orthopaedic Surgery Procedure Note Diagnosis: Right knee pain Procedure: Injection of Corticosteroid into the Right knee. Indications: Rimma Mckeon is a 68 y.o. female who has Right knee pain and [...] of plan per note. Cyndy Shaver PA-C 06/30/2018 10:16 AM Cyndy Shaver PA-C PROCEDURE/MINOR SURGICAL ORDERABLES * DE DRAIN/INJECT LARGE JOINT/BURSA (06/30/2018 11:28 AM STATOR CONNECTOR) Narrative Cyndy Shaver PA-C - 06/30/2018 11:28 AM STATOR CONNECTOR Cyndy Shaver PA-C ? 06/30/2018 11:28 AM Orthopaedic Surgery Procedure Note Diagnosis: Left knee pain Procedure: Injection of Corticosteroid into the Left knee. Indications: Rimma Mckeon is a 68 y.o. female who has Left knee pain and [...] of plan per note. Cyndy Shaver PA-C 06/30/2018 10:17 AM Cyndy Shaver PA-C PROCEDURE/MINOR SURGICAL ORDERABLES * XR KNEE LEFT 4VW OR MORE (06/30/2018 9:18 AM STATOR CONNECTOR) Anatomical Region Laterality Modality Lower Extremity Radiographic Richelle ging 06/30/2018 10:2 2 AM STATOR CONNECTOR Impressions 06/30/2018 10:23 AM STATOR CONNECTOR IMPRESSION: Severe osteoarthritis with genu varum. This report was electronically signed by BRUCE BLANCO MD ??on 06/30/2018 10:23 AM . Narrative 06/30/2018 10:23 AM STATOR CONNECTOR Exam: ??XR KNEE LEFT 4VW OR MORE History: ??knee pain Comparison: None. Findings: No acute fracture or dislocation is present. Severe osteoarthritis is demonstrated, greatest in the medial compartment where there is kdck-gc-psre contact and flattening of the medial femoral [...] in the medial compartment where there is gufa-ay-yifd contact and flattening of the medial femoral condylecontour, subchondral cysts, sclerosis, large osteophytes. There is genu varum and lateral tibial subluxation. No effusion is noted. IMPRESSION: Severe osteoarthritis with genu varum. This report was electronically signed by BRUCE BLANCO MD on 06/30/2018 10:23 AM . Cyndy Shaver PA-C DIAGNOSTIC IMAG ING ORDERABLES * XR KNEE RIGHT 4VW OR MORE (06/30/2018 9:18 AM STATOR CONNECTOR) Anatomical Region Laterality Modality Lower Extremity Radiographic Richelle ging 06/30/2018 10:2 1 AM STATOR CONNECTOR Impressions 06/30/2018 10:22 AM STATOR CONNECTOR IMPRESSION: Severe osteoarthritis and genu varum. This report was electronically signed by BRUCE BLANCO MD ??on 06/30/2018 10:22 AM . Narrative 06/30/2018 10:22 AM STATOR CONNECTOR Exam: ??XR KNEE RIGHT 4VW OR MORE History: ??knee pain Comparison: None. Findings: No fracture or dislocation is present. There is osteoarthritis, severe in the medial compartment with [id number]-be-[id number] contact. Large osteophytes are noted. There is genu varum and lateral tibial subluxation. No effusion is seen. Procedure Note Bruce Blanco MD - 06/30/2018 Exam: XR KNEE RIGHT 4VW OR MORE History: knee pain Comparison: None. Findings: No fracture or dislocation is present. There is osteoarthritis, severein the medial compartment with zjnv-nl-wygk contact. Large osteophytes are noted. There is genu varum and lateral tibial subluxation. No effusionis seen. IMPRESSION: Severe osteoarthritis and genu varum. This report was electronically signed by BRUCE BLANCO MD on 06/30/2018 10:22 AM . Cyndy Shaver PA-C DIAGNOSTIC IMAG ING ORDERABLES
--- OUTSIDE RECORDS SUMMARY | 2024-08-17 11:19 | XMS_ITS | Encounter Summary ---
Author Organization [facility] Address [address] [place] [address] Care Team Providers Care Travel Agency Manager Name Role Phone Unavailable Primary Care Provider Unavailabl e Reason for Visit * Reason Comments Pain Knee bilateral knee injec tions Encounter Details Date Type Department Care Team (Latest Contact Info) Description 07/07/2019 10:15 AM MUSIC INTERNSHIP Office Visit [facility] - Orthopedics [address] [place] [address] Ryan Latif MD [address] [facility] [address] [place] [address] Bilateral primary osteoarthritis of knee (Primary Dx) [...] 158.8 kg (350 lb) 07/07/2019 10:59 AM MUSIC INTERNSHIP Height 165.1 cm (5' 5 ) 07/07/2019 10:59 AM MUSIC INTERNSHIP Body Mass Index 58.24 07/07/2019 10:59 AM MUSIC INTERNSHIP documented in this encounter Progress Notes * Ryan Latif MD - 07/07/2019 11:17 AM CST b C INTERNSHIP documented in this encounter Procedure Notes * Ryan Latif MD - 07/07/2019 11:19 AM CSTAssociated Order(s): PROC INJECTION JOINT (SMALL/INTERMED/MAJOR) Procedure(s): NV DRAIN/INJECT LARGE JOINT/BURSA Pre-Procedure Diagnose(s): Bilateral primary [...] reviewed. The patient was understanding and agreeable. The patient was placed into the appropriate position. The area was prepped with betadine and alcohol. Utilizing the peripatellar portal, the skin, subcutaneous, and pericapsular tissues were injectedwith 3 cc 1% lidocaine without epinephrine using a 21Ga needle. The patient's left knee joint was then entered. Confirmation of location inside the joint was evidenced by aspiration of straw colored synovial fluid. 2 cc of Kenalog/3cc lidocaine was injected into the joint. The needle was removed and the needle site cleaned with alcohol and dressed with a sterile bandage. The procedure was performed under sterile conditions. The patient tolerated the procedure well. Remainder of plan per note. Ryan Latif MD 07/07/2019 11:19 AM C INTERNSHIP * Ryan Latif MD - 07/07/2019 11:19 AM CSTAssociated Order(s): PROC INJECTION JOINT (SMALL/INTERMED/MAJOR) Procedure(s): NV DRAIN/INJECT LARGE JOINT/BURSA Pre-Procedure Diagnose(s): Bilateral primary [...] reviewed. The patient was understanding and agreeable. The patient was placed into the appropriate [...] site cleaned with alcohol and dressed with asterile bandage. The procedure was performed under sterile conditions. The patient tolerated the procedure well. Remainder of plan per note. Ryan Latif MD 07/07/2019 11:19 AM C INTERNSHIP documented in this encounter Miscellaneous Notes * Addendum Note - Ryan Latif MD - 07/07/2019 11:42 AM CSTAddended by: RYAN LATIF on: 07/07/2019 11:42 AM Modules accepted: Orders C INTERNSHIP documented in this encounter Plan of Treatment Not on file documented as of this encounter Goals Goal Patient Goal Type Associated Problems Recent Progress Patient-Stated? Author Mobility General No Jessica Crum RN Note: Expected end date: 08/12/2019 The goal is to maintain or improve your mobility at the optimum level for you. Interventions: documented as of this encounter Procedures Procedure Name Priority Date/Time Associated Diagnosis Comments NV DRAIN/INJECT LARGE JOINT/BURSA Routine 07/07/2019 11:19 AM MUSIC INTERNSHIP Bilateral primary osteoarthritis of knee NV DRAIN/INJECT LARGE JOINT/BURSA Routine 07/07/2019 11:19 AM MUSIC INTERNSHIP Bilateral primary osteoarthritis of knee documented in this encounter Results * NV DRAIN/INJECT LARGE JOINT/BURSA (07/07/2019 11:19 AM MUSIC INTERNSHIP) Ryan Ortega MD - 07/07/2019 11:19 AM MUSIC INTERNSHIP Ryan Latif MD ? 07/07/2019 11:19 AM Orthopaedic [...] procedure well. Remainder of plan per note. Ryan Latif MD 07/07/2019 11:19 AM Ryan Latif MD PROCEDURE/MINOR WILLIAM GICAL ORDERABLES * NV DRAIN/INJECT LARGE JOINT/BURSA (07/07/2019 11:19 AM MUSIC INTERNSHIP) Narrative Ryan Latif MD - 07/07/2019 11:19 AM MUSIC INTERNSHIP Ryan Latif MD ? 07/07/2019 11:19 AM Orthopaedic [...] procedure well. Remainder of plan per note. Ryan Latif MD 07/07/2019 11:19 AM Ryan Latif MD PROCEDURE/MINOR WILLIAM GICAL ORDERABLES documented in this encounter Visit Diagnoses Diagnosis Bilateral primary osteoarthritis of knee- Primary documented in this encounter Administered Medications Inactive Administered Medications - up to 3 most recent administrations Medication Order MAR Action Action Date Dose Rate Site lidocaine (XYLOCAINE) 1 % injection 6 mL 6 mL, Infiltration, ONCE, 1 dose, On Sat07/07/19 at 1145 $ Given 07/07/2019 3:08 PM MUSIC INTERNSHIP 6 mL Right Knee lidocaine (XYLOCAINE) 1 % injection 6 mL 6 mL, Infiltration, ONCE, 1 dose, On Sat07/07/19 at 1145 $ Given 07/07/2019 3:07 PM MUSIC INTERNSHIP 6 mL Left Knee triamcinolone acetonide (KENALOG-40) injection 80 mg 80 mg, Intramuscular, ONCE, 1 dose, On Sat07/07/19 at 1145, Shake well before using. $ Given 07/07/2019 3:09 PM MUSIC INTERNSHIP 80 mg Right Knee triamcinolone acetonide (KENALOG-40) injection 80 mg 80 mg, Intramuscular, ONCE, 1 dose, On Sat07/07/19 at 1145, Shake well before using. $ Given 07/07/2019 3:08 PM MUSIC INTERNSHIP 80 mg Left Knee documented in this encounter
--- OUTSIDE RECORDS SUMMARY | 2024-08-17 11:19 | XMS_ITS | Encounter Summary ---
Author Organization [facility] Address [address] [place] [address] Care Team Providers Care Golf Club Facer Name Role Phone Unavailable Primary Care Provider Unavailabl e Reason for Visit * Reason Comments Pain Knee bilateral knee pain Encounter Details Date Type Department Care Team (Latest Contact Info) Description 06/30/2018 8:30 AM DURAL MECHANIC Office Visit [facility] - Orthopedics [address] [place] [address] Cyndy Shaver PA-C [address] [place] [address] Bilateral primary osteoarthritis of knee [...] - Inhaled Oxygen Concentration - - Weight 167.8 kg (370 lb) 06/30/2018 9:25 AM DURAL MECHANIC Height 165.1 cm (5' 5 ) 06/30/2018 9:25 AM DURAL MECHANIC Body Mass Index 61.57 06/30/2018 9:25 AM DURAL MECHANIC documented in this encounter Patient Instructions * Patient Instructions* Cyndy Shaver PA-C - 06/30/2018 9:38 AM DURAL MECHANIC [facility] Department of Orthopaedic Surgery Orthopaedic Clinic Discharge Form Rimma Mckeon 06/30/2018 Thank you for coming in to see us today for your diagnosis of: Bilateral primary osteoarthritis of knee - Plan: PROCDOC LARGE JOINT INJECTION, PROCDOC LARGE JOINTINJECTION Activity Restrictions: as tolerated Medications Prescribed: meloxicam Special Studies/Labs to be completed: none We [...] taking this medication. Follow up: as needed. Rimma Mckeon had a clinic appointment on 06/30/2018. Please contact our office to make an appointment if your symptoms are not improving, or if something about your condition significantly changes. [facility] Orthopaedic office contact information: [facility] ; select option 4 to leave voicemail with [id number] [place] [address] [place] [address], [address] [address] [facility] Weight Management Services to explore weight loss options. Website: [email or web address] Weight management Services offers both surgical and non-surgical weight-loss options to treat obesity. Whether you need to make long-term lifestyle changes or small habit adjustments, our team of specially- trainedphysicians and clinicians will support you on your journey to wellness. OR Contact [facility] in [place] Weight Loss Surgery Website: [email or web address] documented in this encounter Progress Notes * Cyndy Shaver PA-C - 06/30/2018 9:31 AM CST [facility] [address] [facility] [address] Dept: [phone] Dept Today we had the pleasure of seeing Rimma Mckeon in our [facility] Orthopaedic Surgery Clinic for Chief Complaint Patient presents with ??? Pain Knee bilateral knee pain Rimma Mckeon is a 68 y.o. female who has bilateral knee pain. Pain is located to the right worse than left medial knee. The patient first noted symptoms 10 years ago. It was related to NKI. Associated with pain are symptoms of swelling and instability. Symptoms are exacerbated by weight bearingactivity. Factors which relieve the pain include rest. she is taking aleve for pain. she ambulates with cane. she has not done physical therapy. she has done steroid injection. Last injections were 10 years ago No past medical history on file. No past surgical history on file. No family history on file. History Smoking Status ??? Never Smoker Smokeless Tobacco ??? Never Used Focused ROS includes: Enodcrine Diabetes Mellitus: Not Applicable Thyroid disorders: no Pulmonary COPD: no Asthma: no Other: negative Cardiac History of CHF: no History of PA: no Previous PCI / PTCA: no Previous Cardiac Surgery: no Hypertension requires meds: yes Vascular Known peripheral vascular disease: no Central Nervous System History of TIA's: no CVA: No History of Cancer of any kind: no Bleeding disorders: no Other significant health issues are: negative Physical Examination Vitals: 06/30/18 0925 Weight: (!) 167.8 kg (370 lb) Height: 1.651 m (5' 5 ) Estimated body mass index is 61.57 kg/(m^2) as calculated from the following: Height as of this encounter: 1.651 m (5' 5 ). Weight as of this encounter: 167.8 kg (370 lb). she is awake, alert, oriented and [...] by me in office: plain films bilateral knee: tricompartmental degenerative changes, severe medially. Impression: Bilateral [...] a home exercise program 4. Medication prescribed: meloxicam 5. Patient was counseled as to the following conservative interventions: - Recommend 2000 units Vitamin D daily for bone health - May try 1500 to 2000 mg Glucosamine/chondriotin/MSM daily for joint pain. - The patient was counseled as to the benefits of weight loss. Information provided for [facility] Weight Loss Management services - she was informed about the use of ambulatory assistive devices. 6. F/U as needed. Injections may be repeated in 3 months. Prior to joint replacement surgery, patient understands BMI must be below 35.0 Cyndy Shaver PA-C L MECHANIC documented in this encounter Procedure Notes * Cyndy Shaver PA-C - 06/30/2018 10:16 AM CSTAssociated Order(s): PROCDOC LARGE JOINT INJECTION Procedure(s): DE DRAIN/INJECT LARGE JOINT/BURSA Pre-Procedure Diagnose(s): Bilateral primary [...] note. Cyndy Shaver PA-C 06/30/2018 10:17 AM L MECHANIC * Cyndy Shaver PA-C - 06/30/2018 10:16 AM CSTAssociated Order(s): PROCDOC LARGE JOINT INJECTION Procedure(s): DE DRAIN/INJECT LARGE JOINT/BURSA Pre-Procedure Diagnose(s): Bilateral primary [...] note. Cyndy Shaver PA-C 06/30/2018 10:16 AM L MECHANIC documented in this encounter Plan of Treatment Not on file documented as of this encounter Procedures Procedure Name Priority Date/Time Associated Diagnosis Comments DE DRAIN/INJECT LARGE JOINT/BURSA Routine 06/30/2018 11:28 AM DURAL MECHANIC Bilateral primary osteoarthritis of knee DE DRAIN/INJECT LARGE JOINT/BURSA Routine 06/30/2018 11:28 AM DURAL MECHANIC Bilateral primary osteoarthritis of knee documented in this encounter Results * DE DRAIN/INJECT LARGE JOINT/BURSA (06/30/2018 11:28 AM DURAL MECHANIC) Narrative Cyndy Shaver PA-C - 06/30/2018 11:28 AM DURAL MECHANIC Cyndy Shaver PA-C ? 06/30/2018 11:28 AM [...] DE DRAIN/INJECT LARGE JOINT/BURSA (06/30/2018 11:28 AM DURAL MECHANIC) Narrative Cyndy Shaver PA-C - 06/30/2018 11:28 AM DURAL MECHANIC Cyndy Shaver PA-C ? 06/30/2018 11:28 AM [...] AM Cyndy Shaver PA-C PROCEDURE/MINOR SURGICAL ORDERABLES documented in this encounter Visit Diagnoses Diagnosis Bilateral primary osteoarthritis of knee- Primary documented in this encounter Administered Medications Inactive Administered Medications - up to 3 most recent administrations Medication Order MAR Action Action Date Dose Rate Site lidocaine (XYLOCAINE MPF) 1 % injection 6 mL 6 mL, Intra-articular, ONCE, 1 dose, On 06/30/18 at 1000 $ Given 06/30/2018 10:34 AM DURAL MECHANIC 6 mL Righ t Knee lidocaine (XYLOCAINE MPF) 1 % injection 6 mL 6 mL, Intra-articular, ONCE, 1 dose, On Sat06/30/18 at 1000 $ Given 06/30/2018 10:34 AM DURAL MECHANIC 6 mL Left Knee triamcinolone acetonide (KENALOG-40) injection 80 mg 80 mg, Intra-articular, ONCE, 1 dose, On Sat06/30/18 at 1000, Shake well before using. $ Given 06/30/2018 10:36 AM DURAL MECHANIC 80 mg Rig ht Knee triamcinolone acetonide (KENALOG-40) injection 80 mg 80 mg, Intra-articular, ONCE, 1 dose, On Sat06/30/18 at 1000, Shake well before using. $ Given 06/30/2018 10:35 AM DURAL MECHANIC 80 mg Lef t Knee documented in this encounter
--- NOTE | 2024-08-21 22:19 | WPDSLEEPSTUD ---
Sleep Study Date of Study: 08/10/24 Ordering Provider: Logan Rizo APRN Interpreting Physician: Shana Lira MD Sleep Study Type: Split Polysomnogram Height: 1.63 m Weight: 130.635 kg Body Mass Index: 49.4 Neck Circumference (inches): 14 [place]: 15 Reason for Sleep Study Hypersomnolence, known obstructive sleep apnea diagnosed 2007 Sleep History Saida Mckeon is a 74-year old woman with obstructive sleep apnea diagnosed in 2007. She has new onset congestive heart failure and atrial fibrillation, managed by her pharmacy care coordinator at [facility]. Due to her new cardiac issues, she is having a repeat sleep evaluation. She never awakens from sleep short of breath. She never wakes at night with heartburn, belching or coughing.??She occasionally snores, occasionally snores loudly enough that others complain. She occasionally has trouble sleeping when she has a cold. She never wakes up gasping for breath during the night. She never has breathing problems at night. She rarely sweats excessively at night. She rarely notices her heart pounding or beating irregularly during the night. She occasionally falls asleep during the day. She occasionally falls asleep involuntarily, never falls asleep while driving. She never experiences loss of muscle tone with strong emotion. She never feels paralyzed on waking or falling asleep. She rarely experiences vivid dreams upon waking or falling asleep. She never feels afraid of going to sleep. She rarely has nightmares. She occasionally recalls her dreams. She frequently has thoughts racing through her mind. She rarely feels sad or depressed. She occasionally feels anxiety. She rarely notices parts of her body jerk. She never kicks during the night. She does not comment whether she feels crawling or aching feelings in her legs. She frequently feels leg pain at night. She never has morning jaw pain, and never grinds her teeth at night. She constantly feels bothered by pain during the day, is rarely awakened by pain during the night. She constantly wakes up feeling stiff in the morning, rarely wakes feeling sore or achy in the morning. She occasionally awakens with pain in her neck, spine, or joints. Normal bedtime is 1:00 a.m., falling asleep within minutes, waking once during the night to go to the bathroom. She wakes at 6:30 a.m., reports getting 6 hours of sleep per night. She keeps the same schedule on weekends. She takes naps in the afternoon or evening. A short nap lasting 10-15 minutes may be refreshing. Habits:??Tobacco: Never smoker Caffeine: None Alcohol: Average 3 per day Recreational substances: none PMFSH Past Medical History Medical History Obstructive sleep apnea Electrical isolation of left atrial appendage after cardiac ablation procedure for atrial fibrillation HTN (hypertension) Heart disease Arthritis Atrial fibrillation Surgical History Surgical History History of partial hysterectomy History of right knee surgery H/O left knee surgery Family History Family History Mother Diabetes mellitus Heart disease Cerebrovascular accident Sibling Hypertension Social History Social History Smoking status: Never smoker Alcohol intake: current Drinks per week: 5 Alcohol use details: daily/ vodka and cranberry juice Substance use: never Substance use type: does not use Lack of Transportation: No Lack of Food: Never True Current Housing: I Have Housing Concerned About Future Housing: No Difficulty Paying Gas/Electric Bills: No Difficulty Paying for Meds: No Currently Unemployed: No Education: Bachelor's Degree Difficulty w/ Childcare or Family Care: No Living arrangements: alone Occupation/Education: retired Gender identity (if verbalized by the patient): Female Spiritual care concerns: No Agree to blood products: Yes Medications Home Medications ?Medication ?Instructions ?Recorded ?Confirmed ?Type amiodarone 200 mg tablet 200 mg PO 2XW 06/08/22 05/04/24 History apixaban 5 mg tablet (Eliquis) 5 mg PO BID 06/08/22 05/04/24 History diltiazem HCl 240 mg capsule,24 240 mg PO DAILY 06/08/22 05/04/24 History hr,extended release furosemide 40 mg tablet 40 mg PO QAM 06/08/22 05/04/24 History tizanidine 4 mg capsule 4 mg PO BID PRN muscle spasticity 06/12/23 09/23/24 Rx #90 caps albuterol sulfate 90 mcg/actuation 2 inh inhalation Q4H PRN shortness 06/14/23 05/04/24 Rx aerosol inhaler of breath or wheezing #8.5 grams potassium chloride 20 mEq See Rx Instructions .Route 03/09/24 05/04/24 Rx tablet,extended .COMPLEX #90 tabs release(part/cryst) (Klor-Con M) sacubitril 24 mg-valsartan 26 mg 1 tablet PO BID #180 tabs 03/09/24 05/04/24 Rx tablet (Entresto) empagliflozin 10 mg tablet 10 mg PO DAILY 05/04/24 05/04/24 History (Jardiance) tramadol 50 mg tablet 50 mg PO Q6-8H PRN pain #30 tabs 08/14/24 Rx Sleep Procedure A split night polysomnogram using the [employer] SleepEachpal multi-channel system recorded the standard physiologic parameters including EEG, EOG, submentalis EMG, anterior tibialis EMG, EKG, body position, nasal and oral airflow using nasal pressure sensor and thermistor. Respiratory parameters of chest and abdominal movements were recorded with Respiratory Inductance Plethysmography belts. Oxygen saturation was recorded by pulse oximetry. Video monitoring was also performed. Sleep stages, periodic limb movements, and EEG arousals were scored in 30 second epochs according to the criteria of the AASM Scoring Manual. The Apnea-Hypopnea Index was calculated using CMS guidelines for definition of hypopnea while scoring respiratory events. After the baseline portion the patient met criteria for a titration with an AHI of 51.6 and desaturation to 79%. She used a ResMed AirFit small F20 fullface mask with heated humidity, initial pressure was CPAP 4 cm, titrated through 5 cm, 6 cm, 8 cm, 10 cm, 11 cm, 12 cm, 13 cm, 14 cm, 15 cm, 16 cm, 17 cm switching to bilevel 28/12, last pressure was bilevel /. Patient had central apneas at almost all levels. On the baseline portion of the study she had a total of 216.5 minutes in bed, 136 minutes asleep, 18.5 minutes in REM. She had 3 centrals and 5 mixed apneas on baseline. On BiPAP 28/12, the patient spent 43 minutes in bed, 3 minutes awake, 8 minutes in non-REM and 32 minutes in REM, sleep efficiency was 93%, the residual AHI was 24, mainly central apneas which are expected to resolve with regular use of BiPAP. Lowest saturation was 91%. The sleep was consolidated, with dense supine REM. This is the optimal pressure. Sleep Architecture Baseline During the diagnostic portion of the study, the total recording time was 216.4 minutes. The total sleep time was 136.0 minutes. Sleep latency was 6.5 minutes. REM latency was 91.0 minutes. Sleep Efficiency was 62.8%. The patient had 39 awakenings for an awakening index of 17.2. Wake after sleep onset time was 74.0 minutes. The patient spent 20.5 minutes, 15.1% of total sleep time in Stage N1. The patient spent 96.5 minutes, 71.0% in Stage N2. The patient spent 0.5 minutes, 0.4% in Stage N3. The patient spent 18.5 minutes, 13.6% in Stage REM sleep. Titration At 03:01:33 AM the patient was placed on PAP treatment and was titrated at pressures ranging from 4* cm/H20 with supplemental oxygen at - up to 20/16/0 cm/H20 with supplemental oxygen at -. During the treatment portion of the study, the total recording time was 282.4 minutes. The total sleep time was 232.0 minutes. Sleep latency was 14.5 minutes. REM latency was 92.5 minutes. Sleep Efficiency was 82.2%. Wake after Sleep Onset time was 36.0 minutes. The patient spent 38.5 minutes, 16.6% of total sleep time in Stage N1. The patient spent 136.0 minutes, 58.6% in Stage N2. The patient spent 0.0 minutes, 0.0% in Stage N3. The patient spent 57.5 minutes, 24.8% in Stage REM. Respiratory Analysis Baseline During the diagnostic portion of the study, the patient had 91 hypopneas, 19 obstructive apneas, 5 mixed apneas, and 3 central apneas for an overall Apnea Hypopnea Index of 51.6 events per hour. The REM Apnea Hypopnea Index was 71.4. The NREM Apnea Hypopnea Index was 48.5. The patient had a Central Apnea Hypopnea Index of 1.3. There were - Respiratory Effort Related Arousals resulting in a RERA index of - events per hour. The Respiratory Disturbance Index is 51.6 events per hour. There was no evidence of Win-Rodriguez Respirations. Titration During the treatment portion of the study, the patient had 43 hypopneas, 6 obstructive apneas, 17 mixed apneas, and 156 central apneas for an overall Apnea Hypopnea Index of 57.4 events per hour. The REM Apnea Hypopnea Index was 16.7. The NREM Apnea Hypopnea Index was 70.8. The patient had a Central Apnea Hypopnea Index of 40.3. There were no Respiratory Effort Related Arousals resulting in a RERA index of - events per hour. The Respiratory Disturbance Index is 57.4 events per hour. There was no evidence of Win-Rodriguez Respirations. Arousals Baseline During the diagnostic portion of the study, there were a total of 91 arousals for an arousal index of 40.1. There were 82 respiratory arousals for an index of 36.2. There were no periodic limb movement arousals. There were no isolated limb movement arousals. There were 9 spontaneous arousals for an index of 4.0. Titration During the treatment portion of the study, there were a total of 149 arousals for an index of 38.5. There were 75 respiratory arousals for an index of 19.4. There were no periodic limb movement arousal. There were 5 isolated limb movement arousals for an index of 1.3. There were 69 spontaneous arousals for an index of 17.8. Periodic Limb Movements Baseline During the diagnostic portion of the study, the patient had no isolated limb movements or periodic limb movements. Titration During the treatment portion of the study, the patient had 5 isolated limb movements with an index of 1.3. The patient had no periodic limb movements. The patient had a total of 5 limb movements with a total limb movement index of 1.3. Oximetry Data Baseline During the diagnostic portion of the study, the patient had an average oxygen saturation of 95% in wake with a minimum oxygen saturation of 85% and a maximum oxygen saturation of 100%. The patient had an average oxygen saturation of 95.1% in sleep with a minimum oxygen saturation of 79% and a maximum oxygen saturation of 100%. The patient had 107 oxygen desaturations resulting in an Oxygen Desaturation Index of 47.2. The patient spent 4.2 minutes, 2% of total sleep time with an oxygen saturation less than 88%. Titration During the treatment portion of the study, the patient had an average oxygen saturation of 95.9% in wake with a minimum oxygen saturation of 86% and a maximum oxygen saturation of 100%. The patient had an average oxygen saturation of 95.6% in sleep with a minimum oxygen saturation of 86% and a maximum oxygen saturation of 100%. The patient had 206? oxygen desaturations resulting in an Oxygen Desaturation Index of 53.5. The patient spent 3.1 minutes, 1.1% of total sleep time with an oxygen saturation less than 88%. Snoring Profile Snoring was present on the baseline, eliminated during the titration. Cardiac Profile Baseline During the diagnostic portion of the study, the EKG showed atrial fibrillation, average pulse rate was 66.1 bpm. The minimum pulse rate was 44 bpm. The maximum pulse rate was 88 bpm. No arrhythmias noted. Titration During the treatment portion of the study, the EKG showed atrial fibrillation, average pulse rate was 62.1 bpm. The minimum pulse rate was 40 bpm. The maximum pulse rate was 84 bpm. No arrhythmias noted. EEG Profile EEG was unremarkable, no evidence of seizures. Assessment and Plan Assessment and Plan (1) Obstructive sleep apnea: Code(s): G47.33 - Obstructive sleep apnea (adult) (pediatric) Status: Acute Assessment and Plan: This split night sleep study on 08/10/2024 shows extremely severe obstructive sleep apnea, the apnea-hypopnea index is 51.6 with desaturation to 79% and snoring. Few central apneas were present during the baseline, the central AHI was 1.3 on the baseline. The optimal pressure is BiPAP 19/15 using a ResMed AirFit F20 full face mask and heated humidity. The residual AHI was 24, supine REM occurred, and most of the apneas were central. The patient has treatment-emergent central sleep apnea. Her central apneas are expected to resolve with regular BiPAP treatment. She had 11 central apneas and 5 hypopneas. The central AHI in the treatment portion was 40 overall. BMI is 49. Weight management is advised. Clinical data suggests that weight loss of 10% can reduce the severity of respiratory events and snoring and improve AHI by as much as 25%. Data The data obtained during this sleep study is adequate for interpretation. Certification This sleep study has been reviewed by a board certified sleep medicine physician.
[2024-08-30 16:22] VITALS: BMI 49.4
== END 2024-08-14 00:32 | disposition home or self-care (01) ==
LOC: ANHCSM 07:55
PROVIDERS: PCP Family Medicine; Visit Provider Nurse Practitioner Family
DX: G47.10 Hypersomnia, unspecified (principal); G47.33 Obstructive sleep apnea (adult) (pediatric); I10 Essential (primary) hypertension; Z68.42 Body mass index [BMI] 45.0-49.9, adult
CPT/HCPCS: 95811